=== PATIENT | female | born 1975 | race Caucasian/White ===

== ENCOUNTER → 2020-01-30 | Outpatient (CLI) | payer OTHER ==
[2020-01-30 15:20] LABS: INR 2.26 (0.90-1.11); Prothrombin Time 23.4 sec (9.9-11.9)
== END | disposition home or self-care (01) ==
LOC: LABWHC1 08:41
PROVIDERS: ATTEND Student in an Organized Health Care Education/Training Program
DX: I05.2 Rheumatic mitral stenosis with insufficiency (principal); Z51.81 Encounter for therapeutic drug level monitoring; Z79.01 Long term (current) use of anticoagulants
CPT/HCPCS: 36415; 85610